=== PATIENT | female | born 1955 | race Caucasian/White ===

== ENCOUNTER → 2021-03-23 09:15 | Outpatient (BNVA) | payer MEDICARE, SELFPAY | PROVIDERS: Visit Provider Obstetrics & Gynecology | DX: N95.0 Postmenopausal bleeding (principal) | CPT/HCPCS: 99212 ==

== ENCOUNTER 2021-03-23 15:33 | Outpatient (REF) | payer MEDICARE, SELFPAY ==
--- NOTE | ~2021-03-23 | US_ITS ---
EXAMINATION: US PELVIS CLINICAL INFORMATION: Postmenopausal bleeding COMPARISON: None TECHNIQUE: Ultrasound of the pelvis is performed using both transabdominal and transvaginal transducers along with Doppler. Transvaginal imaging is performed due to inadequate visualization transabdominally. FINDINGS: Uterus: The uterus is anteverted and measures 10.5 x 5.7 x 7.5 cm. The double wall endometrial thickness is 1.6 mm. The uterus is smooth in contour and has heterogeneous myometrial echogenicity. There are 2 fundal fibroids. The largest measures 5.4 x 3.7 x 5.4 cm. Adnexa: Both ovaries are visualized. There is normal color flow to the adnexa. There is no ovarian torsion. There is no pelvic ascites or fluid collection. Right ovary measures 2.5 x 1.0 x 1.0 cm. Left ovary measures 4.8 x 3.2 x 2.6 cm. There is a 2.6 x 3.2 x 2.3 cm cyst with thin internal septation in the left ovary. US/US pelvic and transvaginal IMPRESSION: Thickened endometrium measuring 1.6 cm. This is abnormal in a postmenopausal female, recommend correlation with gynecologic exam. 3.2 cm complex left ovarian cyst.
== END 2021-03-23 15:34 | disposition home or self-care (01) ==
LOC: HO.HMGCX 15:33
PROVIDERS: Visit Provider Obstetrics & Gynecology
DX: N95.0 Postmenopausal bleeding (principal); D25.9 Leiomyoma of uterus, unspecified; N83.292 Other ovarian cyst, left side
CPT/HCPCS: 76830; 76856

== ENCOUNTER 2021-03-29 11:04 | Outpatient (REF) | payer MEDICARE, SELFPAY ==
[2021-03-29 12:24] LABS: Hematocrit 43.2 % (37.0-47.0); Hemoglobin 14.4 g/dl (12.0-16.0); Mean Corpuscular HGB Conc 33.3 g/dl (31.0-35.0); Mean Corpuscular Hemoglobin 30.1 pg (27.0-33.0); Mean Corpuscular Volume 90.2 fL (80.0-98.0); Mean Platelet Volume 10.3 fL (9.4-12.3); Platelet Count 279 X10*3/uL (160-400); Red Blood Count 4.79 X10*6/uL (4.20-5.50); Red Cell Distribution Width 13.2 % (11.0-16.0); White Blood Count 6.8 X10*3/uL (4.8-10.8)
[2021-03-30 19:42] LABS: CA-125 45 U/mL (<35)
== END 2021-03-29 11:05 | disposition home or self-care (01) ==
LOC: HO.LAB 11:04
PROVIDERS: PCP Internal Medicine; Visit Provider Obstetrics & Gynecology
DX: N95.0 Postmenopausal bleeding (principal); N83.299 Other ovarian cyst, unspecified side; E78.00 Pure hypercholesterolemia, unspecified; E07.9 Disorder of thyroid, unspecified; F41.8 Other specified anxiety disorders; Z88.1 Allergy status to other antibiotic agents; Z88.3 Allergy status to other anti-infective agents; Z88.0 Allergy status to penicillin
CPT/HCPCS: 36415; 58100; 85027; 86304; 88305

== ENCOUNTER 2021-04-04 11:33 | Outpatient (REF) | payer MEDICARE, SELFPAY | END 2021-04-04 11:34 | disposition home or self-care (01) | LOC: HO.LAB 11:33 | PROVIDERS: PCP Internal Medicine; Visit Provider Obstetrics & Gynecology | DX: N83.299 Other ovarian cyst, unspecified side (principal); N95.0 Postmenopausal bleeding | CPT/HCPCS: 58100; 88305; 99212 ==

== ENCOUNTER 2021-04-05 11:47 | Day surgery (SDC) | payer MEDICARE, SELFPAY ==
[2021-04-05] VITALS (10 sets, daily range): BP systolic 101–144; BP diastolic 61–86; PULSE 62–81; RESP 12–18; TEMP 36.1–36.9; O2SAT 94–97; BMI 29.7
--- NOTE | 2021-04-05 12:23 | PC.NURSE ---
Ring x1 unable to be removed. Patient educated on risks of bringing metal into OR. OR nurse notified.
[2021-04-05 12:30] LABS: COVID-19 Test Negative (Negative)
--- NOTE | 2021-04-05 12:46 | HO.ANESPROP2 ---
HPI - Anesthesia Eval Consult details Narrative: 65 F for D and C PMFSH Active Problems Active Problems: All Active Problems (Updated 04/04/21 @ 12:28 by Gilberto Woodson MD) Complex ovarian cyst (Acute) Postmenopausal bleeding (Acute) Past Medical History Medical History Anxiety Chronic GERD Depression High cholesterol Thyroid disorder Functional capacity: independent ambulation Family History Family history of problems with anesthesia: No Surgical History Surgical History Hx of appendectomy History of Problems with Anesthesia: No Social History Social History Patient Tobacco Use Status: Never used Tobacco Use of substances other than those prescribed or required for medical reasons: No Are you DNR?: No Advance Directives: No Advance Directives Information Provided: Yes Meds Allergies Allergy/AdvReac Type Severity Reaction Status Date / Time amoxicillin Allergy Unknown Unknown Verified 04/05/21 12:12 clindamycin [CLINDAMYCIN] Allergy Unknown COLITIS Verified 04/05/21 12:12 Home Medications Medication Instructions Recorded Confirmed Last Taken Type celecoxib 200 mg capsule 200 mg PO DAILY 03/23/21 Unknown History levothyroxine 50 mcg tablet 50 mcg PO DAILY 03/23/21 Unknown History (Synthroid) pravastatin 20 mg tablet 20 mg PO DAILY 03/23/21 Unknown History Exam Exam Date and Time: April 05, 2021 1246 Height,Weight and Vital Signs: Height 5 ft 7 in Weight 86.183 kg Last Vital Signs Temp 98.5 F 04/05/21 12:14 Pulse 81 04/05/21 12:14 Resp 16 04/05/21 12:14 BP 135/86 04/05/21 12:14 Pulse Ox 97 04/05/21 12:14 Pertinent Lab Results Pertinent Lab Results: Laboratory Tests 04/05/21 11:55 COVID-19 ([facility]) Negative COVID-19 Clin Com See Note Airway Mallampati Class: II Neck ROM: Full Loose/Missing/Broken Teeth: Yes (Implanr and fillings ) Heart: rrr Lungs: bl breath sounds Assessment and Plan Assessment Anesthesia Assessment: Anesthesia Plan Discussed and Chart Reviewed Final Anesthetic Review Family History of Problems with Anesthesia: No History of Problems with Anesthesia: No NPO: Yes ASA Class: II Final Preanesthetic Review: Consent Obtained/Reviewed and Anes Risks/Benef Reviewed Patient Risk: Intermediate Procedure Risk: Intermediate Anesthetic Plan Anesthetic Plan: GA Disposition: Standard PACU
--- NOTE | 2021-04-05 13:25 | MHC.SHP ---
Pre-Procedural Eval Section A Date of Service: 04/05/21 Section B Chief Complaint: Postmenopausal Bleeding Allergies: Allergies Allergy/AdvReac Type Severity Reaction Status Date / Time amoxicillin Allergy Unknown Unknown Verified 04/05/21 12:12 clindamycin [CLINDAMYCIN] Allergy Unknown COLITIS Verified 04/05/21 12:12 Plan I have reviewed the history and physical and performed a pertinent physical examination on my patient. No changes have occurred unless specified.
--- NOTE | 2021-04-05 14:00 | P.BOP_ITS ---
Brief Operative Note Date of Service: 04/05/21 Pre-op diagnosis: Postmenopausal bleeding Post-op diagnosis: same Procedure: Hysteroscopy D&C, Polypectomy Surgeon: Gilberto Woodson MD Anesthesia: MAC Was an Corporate Legal Manager used for this Procedure?: No Estimated blood loss (mL): 0 Pathology: other (Endometrial Scrapping. Polyp) Condition: stable Disposition: PACU
--- NOTE | 2021-04-05 14:01 | W.PM.OPN ---
Operative Note Operative Note Date of Service: 04/05/21 Narrative: Preop Diagnosis: Postmenopausal bleeding Operation: Diagnostic Hysteroscopy, Dilataion & Curettage and polypectomy Post Op Diagnosis: Endometrial Polyp QBL: Minimal Anesthesia: MAC Surgeon: Gilberto Woodson MD Client Manager: None Complication: None Pathology: Endometrial Scrapings, Endometrial polyp Complication: None Pathology: Endometrial Scrapings, Endometrial polyp Procedure: The patient was put in the dorsal lithotomy position, scrubbed, and draped in the usual manner. A sterile speculum was inserted in the patient's vagina. The anterior lip of the cervix was grasped with a single tooth tenaculum. The cervix was dilated up to 5 mm, then the scope was inserted in the patient's uterus. Inspection revealed endometrial polyp. The Myosure light device was used; it was introduced through the operative channel and polypectomy done with no complications. This was followed by sharp curetting [id number] amount of tissues retrieved. At the end of the procedure, all instruments were taken out of the patient uterine and vaginal cavity. The single tooth tenaculum was removed and homeostasis was assured using pressure,. The patient tolerated the procedure well and was transferred to the PACU in a stable condition.
[2021-04-05] MEDS: Acetaminophen 325 MG TABLET 650 MG PO (14:46)
--- NOTE | 2021-04-05 16:01 | PC.NURSE ---
iv removed.patient scant stain on peripad. dressed at bed without difficulty. d/c instructions reviewed
== END 2021-04-05 16:01 | disposition home or self-care (01) ==
PROVIDERS: Anesthesiology; PCP Internal Medicine; Visit Provider Obstetrics & Gynecology
PROC: 0UDB8ZZ Extraction of Endometrium, Via Natural or Artificial Opening Endoscopic (ICD-10-PCS; CPT 58558; principal; 2021-04-05 13:30)
DX: N95.0 Postmenopausal bleeding (principal); N85.02 Endometrial intraepithelial neoplasia [EIN]; N83.299 Other ovarian cyst, unspecified side; E07.9 Disorder of thyroid, unspecified; F41.1 Generalized anxiety disorder; F32.9 Major depressive disorder, single episode, unspecified; Z88.1 Allergy status to other antibiotic agents; Z20.822 Contact with and (suspected) exposure to COVID-19
CPT/HCPCS: 58558; 87635; 88305; J1100; J2250; J2405; J3010

== ENCOUNTER → 2021-04-06 14:26 | Outpatient (BNVA) | payer MEDICARE, SELFPAY | PROVIDERS: Visit Provider Obstetrics & Gynecology | DX: N85.02 Endometrial intraepithelial neoplasia [EIN] (principal); N83.299 Other ovarian cyst, unspecified side | CPT/HCPCS: Q3014 ==